=== PATIENT | male | born 1985 ===

== ENCOUNTER 2021-02-20 22:08 | Observation (INO) | payer OTHER ==
--- NOTE | 2021-02-20 22:18 | EDM.PDOC ---
ED HPI GENERAL MEDICAL PROBLEM - General Chief Complaint: Respiratory Problem Stated Complaint: DIFFICULTY BREATHING Time Seen by Provider: 02/20/21 22:16 Source of Information: Reports: Patient History Limitations: Reports: No Limitations - History of Present Illness INITIAL COMMENTS - FREE TEXT/NARRATIVE: Patient is a 35-year-old male who presents today for left-sided chest pain and shortness of breath. Patient was diagnosed with Covid a few days ago and had a cough which is getting better but tonight the left-sided chest pain came out of nowhere's been sharp in nature. Also she has history of PEs and takes Xarelto but not been taking it because has been coughing so much and sleeping a lot due to the Covid. He states the pain does not radiate not made better or worse with anything he has not tried any medicine for the pain at home other than the shortness of breath and cough he has no associated symptoms of nausea vomiting fever chills chest pain Pain Score (Numeric/FACES): 10 - Related Data Allergies Allergy/AdvReac Type Severity Reaction Status Date / Time No Known Allergies Allergy Verified 02/20/21 22:15 Home Meds: Home Meds Rivaroxaban [Xarelto] 20 mg PO DAILY 02/20/21 [History] Past Medical History HEENT History: Reports: None Cardiovascular History: Reports: Blood Clots/VTE/DVT Other Cardiovascular History: lung blood clot Respiratory History: Reports: None Gastrointestinal History: Reports: None Genitourinary History: Reports: None Musculoskeletal History: Reports: Back Pain, Chronic Neurological History: Reports: None Psychiatric History: Reports: None Endocrine/Metabolic History: Reports: None Hematologic History: Reports: None Immunologic History: Reports: None Oncologic (Cancer) History: Reports: None Dermatologic History: Reports: None - Past Surgical History Head Surgeries/Procedures: Reports: None HEENT Surgical History: Reports: None Cardiovascular Surgical History: Reports: None Respiratory Surgical History: Reports: None GI Surgical History: Reports: Appendectomy Other GI Surgeries/Procedures: part of intestine removed from appendicitis Male Surgical History: Reports: None Endocrine Surgical History: Reports: None Neurological Surgical History: Reports: None Musculoskeletal Surgical History: Reports: None Oncologic Surgical History: Reports: None ED ROS GENERAL - Review of Systems Review Of Systems: See Below Constitutional: Reports: No Symptoms HEENT: Reports: No Symptoms Respiratory: Reports: No Symptoms Cardiovascular: Reports: Chest Pain Endocrine: Reports: No Symptoms GI/Abdominal: Reports: No Symptoms : Reports: No Symptoms Musculoskeletal: Reports: No Symptoms Skin: Reports: No Symptoms Neurological: Reports: No Symptoms Psychiatric: Reports: No Symptoms Hematologic/Lymphatic: Reports: No Symptoms Immunologic: Reports: No Symptoms ED EXAM, GENERAL - Physical Exam Exam: See Below Exam Limited By: No Limitations General Appearance: Alert, WD/WN, No Apparent Distress Eye Exam: Bilateral Eye: EOMI, PERRL Respiratory/Chest: No Respiratory Distress, Lungs Clear, Normal Breath Sounds Cardiovascular: Normal Peripheral Pulses, Regular Rate, Rhythm GI/Abdominal: Normal Bowel Sounds, Soft, Non-Tender Extremities: Normal Inspection, Normal Range of Motion Neurological: Alert, Oriented #1 Interpretation EKG Date: 02/20/21 Time: 22:17 Rhythm: Other (sinus tach) Rate (Beats/Min): 122 ST-T: Normal Course - Vital Signs Last Recorded V/S: Last Vital Signs Temp 96.7 F L 02/20/21 22:16 Pulse 109 H 02/21/21 00:45 Resp 22 H 02/20/21 22:44 BP 145/72 H 02/21/21 00:45 Pulse Ox 94 L 02/21/21 00:45 - Orders/Labs/Meds Orders: Active Orders 24 hr Category Date Time Status Patient Status [ADT] Routine ADT 02/21/21 00:53 Ordered EKG Documentation Completion [RC] STAT Care 02/20/21 22:15 Active PTT,PARTIAL THROMBOPLSTIN TIME [COAG] Q6 Lab 02/21/21 00:45 Ordered PTT,PARTIAL THROMBOPLSTIN TIME [COAG] Q6 Lab 02/21/21 06:45 Ordered PTT,PARTIAL THROMBOPLSTIN TIME [COAG] Q6 Lab 02/21/21 12:45 Ordered PTT,PARTIAL THROMBOPLSTIN TIME [COAG] Q6 Lab 02/21/21 18:45 Ordered PTT,PARTIAL THROMBOPLSTIN TIME [COAG] Q6 Lab 02/22/21 00:45 Ordered PTT,PARTIAL THROMBOPLSTIN TIME [COAG] Q6 Lab 02/22/21 06:45 Ordered PTT,PARTIAL THROMBOPLSTIN TIME [COAG] Q6 Lab 02/22/21 12:45 Ordered PTT,PARTIAL THROMBOPLSTIN TIME [COAG] Stat Lab 02/21/21 00:43 Ordered Heparin Sodium/0.45% NaCl [Heparin 25,000 Units in 1/2 Med 02/21/21 00:45 Active NS 500 ML] 500 ml IV TITRATE Sodium Chloride 0.9% [Normal Saline] 1,000 ml Med 02/21/21 01:00 Active IV ASDIRECTED Medication Orders Heparin Sodium/Sodium Chloride (Heparin 25,000 Units In 1/2 Ns 500 Ml) 500 mls @ 45.722 mls/hr IV TITRATE LUCRECIA; Protocol Sodium Chloride (Normal Saline) 1,000 mls @ 150 mls/hr IV ASDIRECTED LUCRECIA Labs: Laboratory Tests 02/20/21 02/20/21 02/20/21 Range/Units 22:15 22:15 22:15 WBC 14.47 H (4.0-11.0) K/uL RBC 5.34 (4.50-5.90) M/uL Hgb 17.7 H (13.0-17.0) g/dL Hct 49.8 (38.0-50.0) % MCV 93.3 (80.0-98.0) fL MCH 33.1 H (27.0-32.0) pg MCHC 35.5 (31.0-37.0) g/dL RDW Std Deviation 44.5 (28.0-62.0) fl RDW Coeff of Phong 13 (11.0-15.0) % Plt Count 332 (150-400) K/uL MPV 9.90 (7.40-12.00) fL Neut % (Auto) 67.3 (48.0-80.0) % Lymph % (Auto) 19.8 (16.0-40.0) % Coos % (Auto) 9.4 (0.0-15.0) % Eos % (Auto) 2.9 (0.0-7.0) % Baso % (Auto) 0.6 (0.0-1.5) % Neut # (Auto) 9.7 H (1.4-5.7) K/uL Lymph # (Auto) 2.9 H (0.6-2.4) K/uL Coos # (Auto) 1.4 H (0.0-0.8) K/uL Eos # (Auto) 0.4 (0.0-0.7) K/uL Baso # (Auto) 0.1 (0.0-0.1) K/uL Nucleated RBC % 0.0 /100WBC Nucleated RBCs # 0 K/uL INR 1.06 APTT 24.1 (18.6-31.3) SEC D-Dimer, Quantitative 0.79 H (0.0-0.50) mg/L FEU Sodium 138 (136-148) mmol/L Potassium 3.9 (3.5-5.1) mmol/L Chloride 99 (98-107) mmol/L Carbon Dioxide 26.7 (21.0-32.0) mmol/L BUN 10 (7.0-18.0) mg/dL Creatinine 1.0 (0.8-1.3) mg/dL Est Cr Clr Drug Dosing 122.16 mL/min Estimated GFR (MDRD) > 60.0 ml/min Glucose 95 (74-106) mg/dL Calcium 8.9 (8.5-10.1) mg/dL Magnesium 2.3 (1.8-2.4) mg/dL Total Bilirubin 0.5 (0.2-1.0) mg/dL AST 44 H (15-37) IU/L ALT 111 H (14-63) IU/L Alkaline Phosphatase 76 (46-116) U/L Creatine Kinase 103 (26-308) U/L Troponin I < 0.050 (0.000-0.056) ng/mL Total Protein 8.3 H (6.4-8.2) g/dL Albumin 4.1 (3.4-5.0) g/dL Globulin 4.2 H (2.6-4.0) g/dL Albumin/Globulin Ratio 1.0 (0.9-1.6) Lipase 159 (73-393) U/L Meds: Medications Generic Name Dose Route Start Last Admin Trade Name Freq PRN Reason Stop Dose Admin Heparin Sodium/Sodium Chloride 500 mls @ 45.722 mls/hr 02/21/21 00:45 Heparin 25,000 Units In 1/2 Ns 500 Ml IV TITRATE LUCRECIA Protocol 18 UNITS/KG/HR Sodium Chloride 1,000 mls @ 150 mls/hr 02/21/21 01:00 Normal Saline IV ASDIRECTED LUCRECIA Discontinued Medications Generic Name Dose Route Start Last Admin Trade Name Divina PRN Reason Stop Dose Admin Heparin Sodium (Porcine) 5,000 units 02/21/21 00:42 Heparin Sodium 5,000 Units/Ml Vial IVPUSH 02/21/21 00:43 .BOLUS ONE Sodium Chloride 1,000 mls @ 1,000 mls/hr 02/20/21 22:22 02/20/21 22:55 Normal Saline IV 02/20/21 23:21 1,000 mls/hr .Bolus ONE Administration Iopamidol 100 ml 02/20/21 23:42 02/20/21 23:53 Iopamidol 755 Mg/Ml 500 Ml Multipack Bottle IVPUSH 02/20/21 23:43 100 ml ONETIME STA Administration Ketorolac Tromethamine 30 mg 02/20/21 23:14 02/20/21 23:25 Ketorolac 30 Mg/Ml Sdv IVPUSH 02/20/21 23:15 30 mg ONETIME ONE Administration - Re-Assessments/Exams Free Text/Narrative Re-Assessment/Exam: 02/21/21 00:53 She has subsegmental PE with possible right heart strain. The report also mentions some peripheral possible infiltrate groundglass opacities or infarct is likely infiltrates due to patient recent Covid. Patient will be admitted here and started on heparin. Departure - Departure Time of Disposition: 00:54 Disposition: Refer to Observation Condition: Good Clinical Impression: Pulmonary embolism - Discharge Information *PRESCRIPTION DRUG MONITORING PROGRAM REVIEWED*: Not Applicable *COPY OF PRESCRIPTION DRUG MONITORING REPORT IN PATIENT LUPE: Not Applicable Referrals: PCP,None [Primary Care Provider] - Forms: ED Department Discharge Critical Care Note - Critical Care Note Total Time (mins): 45 Comments: Critical Care Procedure Note Authorized and Performed by: Dr. Ervin Total critical care time: Approximately Due to a high probability of clinically significant, life threatening deterioration, the patient required my highest level of preparedness to interv vineet emergently and I personally spent this critical care time directly and personally managing the patient. This critical care time included obtaining a history; examining the patient; pulse oximetry; ordering and review of studies; arranging urgent treatment with development of a management plan; evaluation of patient's response to treatment; frequent reassessment; and, discussions with other providers. This critical care time was performed to assess and manage the high probability of imminent, life-threatening deterioration that could result in multi-organ failure. It was exclusive of separately billable procedures and treating other patients and teaching time. Sepsis Event Note (ED) - Focused Exam Vital Signs: Vital Signs Temp Pulse Resp BP Pulse Ox 02/21/21 00:45 109 H 145/72 H 94 L 02/21/21 00:14 105 H 138/75 93 L 02/20/21 23:14 105 H 126/75 94 L 02/20/21 22:44 107 H 22 H 122/75 95 02/20/21 22:30 123 H 24 H 96 02/20/21 22:16 96.7 F L 133 H 30 H 112/81 96 - My Orders Last 24 Hours: My Active Orders 02/20/21 22:15 EKG Documentation Completion [RC] STAT 02/21/21 00:43 PTT,PARTIAL THROMBOPLSTIN TIME [COAG] Stat 02/21/21 00:45 PTT,PARTIAL THROMBOPLSTIN TIME [COAG] Q6H Heparin Sodium/0.45% NaCl [Heparin 25,000 Units in 1/2 NS 500 ML] 500 ml IV TITRATE 02/21/21 00:53 Patient Status [ADT] Routine 02/21/21 01:00 Sodium Chloride 0.9% [Normal Saline] 1,000 ml IV ASDIRECTED 02/21/21 06:45 PTT,PARTIAL THROMBOPLSTIN TIME [COAG] Q6H 02/21/21 12:45 PTT,PARTIAL THROMBOPLSTIN TIME [COAG] Q6H 02/21/21 18:45 PTT,PARTIAL THROMBOPLSTIN TIME [COAG] Q6H 02/22/21 00:45 PTT,PARTIAL THROMBOPLSTIN TIME [COAG] Q6H 02/22/21 06:45 PTT,PARTIAL THROMBOPLSTIN TIME [COAG] Q6H 02/22/21 12:45 PTT,PARTIAL THROMBOPLSTIN TIME [COAG] Q6H - Assessment/Plan Last 24 Hours: My Active Orders 02/20/21 22:15 EKG Documentation Completion [RC] STAT 02/21/21 00:43 PTT,PARTIAL THROMBOPLSTIN TIME [COAG] Stat 02/21/21 00:45 PTT,PARTIAL THROMBOPLSTIN TIME [COAG] Q6H Heparin Sodium/0.45% NaCl [Heparin 25,000 Units in 1/2 NS 500 ML] 500 ml IV TITRATE 02/21/21 00:53 Patient Status [ADT] Routine 02/21/21 01:00 Sodium Chloride 0.9% [Normal Saline] 1,000 ml IV ASDIRECTED 02/21/21 06:45 PTT,PARTIAL THROMBOPLSTIN TIME [COAG] Q6H 02/21/21 12:45 PTT,PARTIAL THROMBOPLSTIN TIME [COAG] Q6H 02/21/21 18:45 PTT,PARTIAL THROMBOPLSTIN TIME [COAG] Q6H 02/22/21 00:45 PTT,PARTIAL THROMBOPLSTIN TIME [COAG] Q6H 02/22/21 06:45 PTT,PARTIAL THROMBOPLSTIN TIME [COAG] Q6H 02/22/21 12:45 PTT,PARTIAL THROMBOPLSTIN TIME [COAG] Q6H Plan: Patient is a 35-year-old male who presents today for left-sided chest pain shortness of breath. Patient is Covid positive. Will obtain x-ray and CT PE has patient had taken Xarelto EKG and reassess.
[2021-02-20] MEDS ORDERED: Sodium Chloride 0.9% 1,000 ML IV ONE (22:22)
--- NOTE | 2021-02-20 22:46 | CR ---
For Patients: As a result of the Century Cures Act, medical imaging exams and procedure reports are released immediately into your electronic medical record. You may view this report before your referring provider. If you have questions, please contact your health care provider. INDICATION: Left sided chest pain with recent COVID-19 diagnosis TECHNIQUE: Chest radiograph 1 view COMPARISON: None FINDINGS: Moderate degradation of image quality noted due to body habitus. Mediastinum: The mediastinum is normal in appearance. The heart silhouette is normal in size and morphology. Lung: There is minimal left basilar atelectasis with small lung volumes. No sign of pleural effusion seen. No pneumothorax is identified. Bone and Soft tissue: Unremarkable for age. IMPRESSION: 1. There is minimal left basilar atelectasis with small lung volumes. Dictated by: Rex Armstrong MD @ 02/20/2021 22:45:02 (Electronically Signed)
[2021-02-20 22:57] LABS: BLOOD UREA NITROGEN,BUN 10 mg/dL (7.0-18.0); CARBON DIOXIDE,CO2 26.7 mmol/L (21.0-32.0); CHLORIDE,CL 99 mmol/L (98-107); GLUCOSE RANDOM 95 mg/dL (74-106); LIPASE 159 U/L (73-393); POTASSIUM,K 3.9 mmol/L (3.5-5.1); SODIUM,NA 138 mmol/L (136-148)
[2021-02-20] MEDS ORDERED: Ketorolac 30 MG/ML SDV IVPUSH ONE (23:14)
[2021-02-20] MEDS ORDERED: Iopamidol 755 MG/ML 500 ML Multipack Bottle IVPUSH STA (23:42)
--- NOTE | 2021-02-21 00:37 | CT ---
INDICATION: Chest pain. Elevated D-dimer. COVID-19 TECHNIQUE: CT chest pulmonary PE protocol acquired with IV contrast. 100 mL of Isovue 370 administered. COMPARISON: None FINDINGS: Cardiovascular structures: Heterogeneous opacification and mild respiratory motion limits evaluation of some segmental and subsegmental pulmonary arteries. Filling defects in left lower lobe segmental and subsegmental pulmonary arteries consistent with pulmonary emboli. Ill-defined foci of luminal hypodensity in some left upper lobe segmental branches could be related to artifact, although additional pulmonary emboli are not excluded. Normal cardiac size. Borderline RV/LV ratio. Borderline dilatation of the aortic root measuring 4 cm. Mediastinum and caroline: No abnormally enlarged lymph nodes. Lungs: Left basilar subsegmental atelectasis. Patchy ground-glass opacities in the posterior and posterolateral left lung base which could represent infectious infiltrates or evolving pulmonary infarcts. Pleura and pericardium: A small left pleural effusion. Chest wall and axilla: No mass or adenopathy. Upper abdomen: Hepatic steatosis. Splenomegaly measuring 15.9 cm. Bones: No significant findings. IMPRESSION: Segmental and subsegmental left lower lobe pulmonary emboli. Borderline RV/LV ratio could represent mild RV strain. Patchy peripheral left lower lobe ground-glass opacities could represent infectious infiltrates or evolving pulmonary infarcts. A small left pleural effusion. Hepatic steatosis. Splenomegaly. The pertinent findings were discussed with Dr. Ervin, by phone, on 02/21/2021 at 12:30 a.m. Please note that all CT scans at this facility use dose modulation, iterative reconstruction, and/or weight-based dosing when appropriate to reduce radiation dose to as low as reasonably achievable. Dictated by Casey Centeno MD @ 02/21/2021 12:35:[address] Casey Centeno @ Feb 21 2021 12:35AM
[2021-02-21] MEDS ORDERED: Heparin Sodium 5,000 Units/ML Vial IVPUSH ONE ×4 (00:42→19:28)
[2021-02-21] MEDS ORDERED: Sodium Chloride 0.9% 1,000 ML IV SCH (01:00)
[2021-02-21] MEDS: Heparin Sodium/0.45% NaCl 500 ML IV SCH ×2 (01:13→15:51)
[2021-02-21] MEDS ORDERED: Ondansetron 4 MG/2 ML SDV IVPUSH PRN (03:05)
[2021-02-21] MEDS: Lactated Ringers 1,000 ML IV SCH ×3 (03:24→21:05)
[2021-02-21 08:03] LABS: BLOOD UREA NITROGEN,BUN 11 mg/dL (7.0-18.0); CARBON DIOXIDE,CO2 25.9 mmol/L (21.0-32.0); CHLORIDE,CL 105 mmol/L (98-107); GLUCOSE RANDOM 103 mg/dL (74-106); POTASSIUM,K 3.8 mmol/L (3.5-5.1); SODIUM,NA 140 mmol/L (136-148)
--- NOTE | 2021-02-21 09:10 | PCM.HP.2 ---
H&P History of Present Illness - General Date of Service: 02/21/21 Admit Problem/Dx: Admission Diagnosis/Problem Admission Diagnosis/Problem Pulmonary embolism - History of Present Illness Initial Comments - Free Text/Narative: Patient is a 35-year-old male with past medical history of PEs currently on anticoagulation, patient was recently diagnosed with Covid and has been having cough and weakness because of Covid. Patient states he was feeling better up until yesterday when he started having sharp chest pains on the left side which came out of nowhere. Patient has not been taking his oral anticoagulation for last few days due to constant cough and him being sleepy most of the day due to Covid. Patient denies any presyncope, syncope, palpitations, abdominal pain, nausea, vomiting, fever, chills, neurological deficits, urinary/frequency urinary urgency, diarrhea, constipation. In the ER CT of the chest was done which did show segmental and subsegmental PEs with a possible mild right heart strain, the report also mentioned some peripheral possible infiltrate groundglass opacities or developing pulmonary infarct, troponin was negative. EKG showed sinus tachycardia with heart of 122, no evidence of right heart strain on EKG. Patient was not hypoxic and was saturating 96% on room air. Pulmonology at [facility] was consulted, patient did not meet any criteria for invasive procedure such as thrombectomy, was recommended to restart patient's anticoagulation's. Given patient's possible right heart strain and his continued pain, as well as his Covid positive status, patient was considered hig h risk for discharge, patient was admitted to the hospital for observation and started on heparin drip. Left Thoracic Pain Score (Numeric/FACES): 7 chest pain Pain Score (Numeric/FACES): 10 Right Leg Pain Score (Numeric/FACES): 6 - Related Data Allergies/Adverse Reactions: Allergies Allergy/AdvReac Type Severity Reaction Status Date / Time No Known Allergies Allergy Verified 02/21/21 02:44 Home Medications: Home Meds Rivaroxaban [Xarelto] 20 mg PO DAILY 02/20/21 [History] Past Medical History HEENT History: Reports: None Cardiovascular History: Reports: Blood Clots/VTE/DVT Other Cardiovascular History: lung blood clot Respiratory History: Reports: None Gastrointestinal History: Reports: None Genitourinary History: Reports: None Musculoskeletal History: Reports: Back Pain, Chronic Neurological History: Reports: None Psychiatric History: Reports: None Endocrine/Metabolic History: Reports: None Hematologic History: Reports: None Immunologic History: Reports: None Oncologic (Cancer) History: Reports: None Dermatologic History: Reports: None - Infectious Disease History Infectious Disease History: Reports: Chicken Pox, Novel Coronavirus - Past Surgical History Head Surgeries/Procedures: Reports: None HEENT Surgical History: Reports: None Cardiovascular Surgical History: Reports: None Respiratory Surgical History: Reports: None GI Surgical History: Reports: Appendectomy Other GI Surgeries/Procedures: part of intestine removed from appendicitis Male Surgical History: Reports: None Endocrine Surgical History: Reports: None Neurological Surgical History: Reports: None Musculoskeletal Surgical History: Reports: None Oncologic Surgical History: Reports: None Social & Family History - Tobacco Use Tobacco Use Status *Q: Current Every Day Tobacco User Years of Tobacco use: 14 Packs/Tins Daily: 1 Used Tobacco, but Quit: No - Caffeine Use Caffeine Use: Reports: Coffee, Energy Drinks, Soda - Recreational Drug Use Recreational Drug Use: No H&P Review of Systems - Review of Systems: Review Of Systems: See Below General: Denies: Fever, Chills, Malaise Pulmonary: Reports: Shortness of Breath, Pleuritic Chest Pain, Cough. Denies: Wheezing Cardiovascular: Reports: Chest Pain, Dyspnea on Exertion. Denies: Palpitations, Orthopnea, PND, Edema, Lightheadedness, Syncope Gastrointestinal: Denies: Abdominal Pain, Anorexia, Black Stool Genitourinary: Denies: Dysuria, Frequency, Burning Musculoskeletal: Denies: Neck Pain, Shoulder Pain, Arm Pain Skin: Denies: Cyanosis, Jaundice, Mottled Psychiatric: Denies: Confusion, Depression, Mood Lability Neurological: Denies: Confusion, Dizziness, Headache Exam - Exam Exam: See Below - Vital Signs Vital Signs: Last Vital Signs Temp 36.6 C 02/21/21 08:08 Pulse 79 02/21/21 08:08 Resp 16 02/21/21 08:08 BP 133/81 02/21/21 08:08 Pulse Ox 97 02/21/21 08:08 Weight: 129.047 kg - Exam Quality Assessment: Supplemental Oxygen (For comfort patient was not hypoxic) General: Alert, Oriented Neck: Supple Lungs: Clear to Auscultation Cardiovascular: Regular Rate, Regular Rhythm, Normal S1, Normal S2 GI/Abdominal Exam: Normal Bowel Sounds, Soft, Non-Tender - Patient Data Lab Results Last 24 hrs: Laboratory Results - last 24 hr 02/20/21 02/20/21 02/20/21 Range/Units 22:15 22:15 22:15 WBC 14.47 H (4.0-11.0) K/uL RBC 5.34 (4.50-5.90) M/uL Hgb 17.7 H (13.0-17.0) g/dL Hct 49.8 (38.0-50.0) % MCV 93.3 (80.0-98.0) fL MCH 33.1 H (27.0-32.0) pg MCHC 35.5 (31.0-37.0) g/dL RDW Std Deviation 44.5 (28.0-62.0) fl RDW Coeff of Phong 13 (11.0-15.0) % Plt Count 332 (150-400) K/uL MPV 9.90 (7.40-12.00) fL Neut % (Auto) 67.3 (48.0-80.0) % Lymph % (Auto) 19.8 (16.0-40.0) % King % (Auto) 9.4 (0.0-15.0) % Eos % (Auto) 2.9 (0.0-7.0) % Baso % (Auto) 0.6 (0.0-1.5) % Neut # (Auto) 9.7 H (1.4-5.7) K/uL Lymph # (Auto) 2.9 H (0.6-2.4) K/uL King # (Auto) 1.4 H (0.0-0.8) K/uL Eos # (Auto) 0.4 (0.0-0.7) K/uL Baso # (Auto) 0.1 (0.0-0.1) K/uL Nucleated RBC % 0.0 /100WBC Nucleated RBCs # 0 K/uL INR 1.06 APTT 24.1 (18.6-31.3) SEC D-Dimer, Quantitative 0.79 H (0.0-0.50) mg/L FEU Sodium 138 (136-148) mmol/L Potassium 3.9 (3.5-5.1) mmol/L Chloride 99 (98-107) mmol/L Carbon Dioxide 26.7 (21.0-32.0) mmol/L BUN 10 (7.0-18.0) mg/dL Creatinine 1.0 (0.8-1.3) mg/dL Est Cr Clr Drug Dosing 122.16 mL/min Estimated GFR (MDRD) > 60.0 ml/min Glucose 95 (74-106) mg/dL Calcium 8.9 (8.5-10.1) mg/dL Phosphorus (2.6-4.7) mg/dL Magnesium 2.3 (1.8-2.4) mg/dL Total Bilirubin 0.5 (0.2-1.0) mg/dL AST 44 H (15-37) IU/L ALT 111 H (14-63) IU/L Alkaline Phosphatase 76 (46-116) U/L Creatine Kinase 103 (26-308) U/L Troponin I < 0.050 (0.000-0.056) ng/mL Total Protein 8.3 H (6.4-8.2) g/dL Albumin 4.1 (3.4-5.0) g/dL Globulin 4.2 H (2.6-4.0) g/dL Albumin/Globulin Ratio 1.0 (0.9-1.6) Lipase 159 (73-393) U/L 02/21/21 02/21/21 02/21/21 Range/Units 07:02 07:02 07:02 WBC 10.48 (4.0-11.0) K/uL RBC 4.63 (4.50-5.90) M/uL Hgb 15.0 (13.0-17.0) g/dL Hct 43.6 (38.0-50.0) % MCV 94.2 (80.0-98.0) fL MCH 32.4 H (27.0-32.0) pg MCHC 34.4 (31.0-37.0) g/dL RDW Std Deviation 45.1 (28.0-62.0) fl RDW Coeff of Phong 13 (11.0-15.0) % Plt Count 215 (150-400) K/uL MPV 9.50 (7.40-12.00) fL Neut % (Auto) 59.4 (48.0-80.0) % Lymph % (Auto) 25.9 (16.0-40.0) % King % (Auto) 10.6 (0.0-15.0) % Eos % (Auto) 3.7 (0.0-7.0) % Baso % (Auto) 0.4 (0.0-1.5) % Neut # (Auto) 6.2 H (1.4-5.7) K/uL Lymph # (Auto) 2.7 H (0.6-2.4) K/uL King # (Auto) 1.1 H (0.0-0.8) K/uL Eos # (Auto) 0.4 (0.0-0.7) K/uL Baso # (Auto) 0.0 (0.0-0.1) K/uL Nucleated RBC % 0.0 /100WBC Nucleated RBCs # 0 K/uL INR APTT 29.2 (18.6-31.3) SEC D-Dimer, Quantitative (0.0-0.50) mg/L FEU Sodium 140 (136-148) mmol/L Potassium 3.8 (3.5-5.1) mmol/L Chloride 105 (98-107) mmol/L Carbon Dioxide 25.9 (21.0-32.0) mmol/L BUN 11 (7.0-18.0) mg/dL Creatinine 1.0 (0.8-1.3) mg/dL Est Cr Clr Drug Dosing 122.16 mL/min Estimated GFR (MDRD) > 60.0 ml/min Glucose 103 (74-106) mg/dL Calcium 8.2 L (8.5-10.1) mg/dL Phosphorus 4.0 (2.6-4.7) mg/dL Magnesium 2.1 (1.8-2.4) mg/dL Total Bilirubin (0.2-1.0) mg/dL AST (15-37) IU/L ALT (14-63) IU/L Alkaline Phosphatase (46-116) U/L Creatine Kinase (26-308) U/L Troponin I (0.000-0.056) ng/mL Total Protein (6.4-8.2) g/dL Albumin (3.4-5.0) g/dL Globulin (2.6-4.0) g/dL Albumin/Globulin Ratio (0.9-1.6) Lipase (73-393) U/L Result Diagrams: 02/21/21 07:02 02/21/21 07:02 Sepsis Event Note - Evaluation Sepsis Screening Result: No Definite Risk - Focused Exam Vital Signs: Vital Signs Temp Pulse Resp BP Pulse Ox 02/21/21 08:08 36.6 C 79 16 133/81 97 02/21/21 03:00 82 18 96 02/21/21 02:00 36.6 C 102 H 18 145/83 H 96 02/21/21 01:36 95 126/79 95 02/21/21 00:45 109 H 145/72 H 94 L 02/21/21 00:14 105 H 138/75 93 L 02/20/21 23:14 105 H 126/75 94 L 02/20/21 22:44 107 H 22 H 122/75 95 02/20/21 22:30 123 H 24 H 96 02/20/21 22:16 35.9 C L 133 H 30 H 112/81 96 - Problem List (1) COVID-19 SNOMED Code(s): 196189714 ICD Code: U07.1 - COVID-19 Status: Acute Current Visit: Yes (2) Pulmonary embolism SNOMED Code(s): 07904234 ICD Code: I26.99 - OTHER PULMONARY EMBOLISM WITHOUT ACUTE COR PULMONALE Status: Acute Current Visit: Yes (3) Chest pain SNOMED Code(s): 32556317 ICD Code: R07.9 - CHEST PAIN, UNSPECIFIED Status: Acute Current Visit: Yes Problem List Initiated/Reviewed/Updated: Yes Orders Last 24hrs: Active Orders 24 hr Category Date Time Status Patient Status [ADT] Routine ADT 02/21/21 00:53 Active EKG Documentation Completion [RC] STAT Care 02/20/21 22:15 Active Oxygen Therapy [RC] ASDIRECTED Care 02/21/21 03:02 Active RT Incentive Spirometry [RC] ASDIRECTED Care 02/21/21 03:10 Active Telemetry Monitoring [Cardiac Monitoring] [RC] Q8H Care 02/21/21 01:24 Active Vital Signs [RC] Q4H Care 02/21/21 07:00 Active Heart Healthy Diet [DIET] Diet 02/21/21 Breakfast Active PTT,PARTIAL THROMBOPLSTIN TIME [COAG] Q6H Lab 02/21/21 12:45 Ordered PTT,PARTIAL THROMBOPLSTIN TIME [COAG] Q6 Lab 02/21/21 18:45 Ordered PTT,PARTIAL THROMBOPLSTIN TIME [COAG] Q6 Lab 02/22/21 00:45 Ordered PTT,PARTIAL THROMBOPLSTIN TIME [COAG] Q6 Lab 02/22/21 02:15 Ordered PTT,PARTIAL THROMBOPLSTIN TIME [COAG] Q6 Lab 02/22/21 06:45 Ordered PTT,PARTIAL THROMBOPLSTIN TIME [COAG] Q6 Lab 02/22/21 08:15 Ordered PTT,PARTIAL THROMBOPLSTIN TIME [COAG] Q6 Lab 02/22/21 12:45 Ordered PTT,PARTIAL THROMBOPLSTIN TIME [COAG] Q6 Lab 02/22/21 14:15 Ordered PTT,PARTIAL THROMBOPLSTIN TIME [COAG] Q6 Lab 02/22/21 20:15 Ordered Acetaminophen [TylenoL] Med 02/21/21 03:04 Active 650 mg PO Q4H PRN Heparin Sodium/0.45% NaCl [Heparin 25,000 Units in 1/2 Med 02/21/21 00:45 Active NS 500 ML] 500 ml IV TITRATE Lactated Ringers [Ringers, Lactated] 1,000 ml Med 02/21/21 03:15 Active IV ASDIRECTED Ondansetron [Zofran] Med 02/21/21 03:05 Active 4 mg IVPUSH Q4H PRN Sodium Chloride 0.9% [Normal Saline] 1,000 ml Med 02/21/21 01:00 Active IV ASDIRECTED Pulse Oximetry Continuous Monitoring [OM.PC] Routine Oth 02/21/21 03:03 Or dered Medication Orders Acetaminophen (Acetaminophen 325 Mg Tab) 650 mg PO Q4H PRN PRN Reason: Pain/Fever Heparin Sodium/Sodium Chloride (Heparin 25,000 Units In 1/2 Ns 500 Ml) 500 mls @ 45.722 mls/hr IV TITRATE LUCRECIA; Protocol Last Titration: 02/21/21 08:50 Dose: 15 units/kg/hr, 38.102 mls/hr Documented by: ILANA Cosigned by: BRIA Admin: 02/21/21 01:13 Dose: 11 units/kg/hr, 27.941 mls/hr Documented by: DANIELE Cosigned by: ROCK Sodium Chloride (Normal Saline) 1,000 mls @ 150 mls/hr IV ASDIRECTED [facility] Last Infusion: 02/21/21 03:20 Dose: 0 mls/hr Documented by: Admin: 02/21/21 01:19 Dose: 150 mls/hr Documented by: DANIELE Lactated Ringer's (Ringers, Lactated) 1,000 mls @ 125 mls/hr IV ASDIRECTED [facility] Last Admin: 02/21/21 03:24 Dose: 125 mls/hr Documented by: CASA Ondansetron HCl (Ondansetron 4 Mg/2 Ml Sdv) 4 mg IVPUSH Q4H PRN PRN Reason: Nausea/Vomiting Assessment/Plan Comment:: 35-year-old male with history of PEs admitted for pulmonary embolism due to noncompliance with his oral anticoagulants Continue heparin GTT Continuous pulse ox Patient had an episode of chest pain this morning, troponin was checked which was negative there were no concerning changes on telemetry, patient was likely having episode of increased anxiety, received IV morphine which helped with the pain Patient was complaining of right lower leg pain, ultrasound of the leg was obtained which was negative for DVT We will transition to oral anticoagulant after 24-hour observation, Patient currently not hypoxic, does not meet criteria for IV remdesivir or dexamethasone DuoNebs as needed for shortness of breath IV morphine for pleuritic chest pain Regular diet as tolerated Anticipate discharge in a.m.
[2021-02-21] MEDS: Acetaminophen 325 MG Tab PO PRN (09:41)
[2021-02-21] MEDS ORDERED: Morphine 2 MG/ML SYRINGE IVPUSH ONE (09:45)
--- NOTE | 2021-02-21 12:53 | US ---
CLINICAL HISTORY: Right buttock pain TECHNIQUE: A compression venous ultrasound exam was performed of the right lower extremity using mancilla-scale imaging, color Doppler and spectral Doppler analysis. FINDINGS: Sonographic imaging of the right lower extremity demonstrates normal compressibility and color Doppler venous blood flow within the common femoral vein, deep femoral vein, and the proximal greater saphenous vein. Within the thigh, the femoral vein is patent and compressible. At a lower level, the popliteal and posterior tibial veins also show normal compressibility and color Doppler venous blood flow. Limited imaging of the contralateral groin demonstrates a normal spectral waveform and color Doppler venous blood flow within the left common femoral vein. IMPRESSION: Normal venous ultrasound exam. No evidence of deep vein thrombosis within the right lower extremity. Dictated by Lizette Combs MD @ 02/21/2021 12:51:[address] Lizette Combs @ Feb 21 2021 12:51PM
[2021-02-21] MEDS ORDERED: Albuterol/Ipratropium 3.0-0.5 MG/3 ML Neb Soln NEB PRN (13:34)
[2021-02-21] MEDS: Morphine 2 MG/ML SYRINGE IVPUSH PRN ×2 (15:53→19:59)
[2021-02-21] MEDS ORDERED: Tranexamic Acid 1,000 MG in Sodium Chloride 0.9% 100 ML IV ONE (22:59)
[2021-02-22] MEDS: Morphine 2 MG/ML SYRINGE IVPUSH PRN (01:35)
[2021-02-22] MEDS ORDERED: Heparin Sodium 5,000 Units/ML Vial IVPUSH ONE (01:48)
[2021-02-22] MEDS: Heparin Sodium/0.45% NaCl 500 ML IV SCH (03:30)
[2021-02-22] MEDS: Lactated Ringers 1,000 ML IV SCH (05:13)
[2021-02-22] MEDS: Acetaminophen 325 MG Tab PO PRN (09:46)
[2021-02-22] MEDS ORDERED: Rivaroxaban 10 MG Tab PO ONE (10:15)
--- NOTE | 2021-02-22 12:08 | PCM.DCSUM1 ---
Discharge Summary - Hospital Course Free Text/Narrative:: Patient is a 35-year-old male with past medical history of PEs currently on anticoagulation, patient was recently diagnosed with Covid and has been having cough and weakness because of Covid. Patient states he was feeling better up until yesterday when he started having sharp chest pains on the left side which came out of nowhere. Patient has not been taking his oral anticoagulation for last few days due to constant cough and him being sleepy most of the day due to Covid. Patient denies any presyncope, syncope, palpitations, abdominal pain, nausea, vomiting, fever, chills, neurological deficits, urinary/frequency urinary urgency, diarrhea, constipation. In the ER CT of the chest was done which did show segmental and subsegmental PEs with a possible mild right heart strain, the report also mentioned some peripheral possible infiltrate groundgla ss opacities or developing pulmonary infarct, troponin was negative. EKG showed sinus tachycardia with heart of 122, no evidence of right heart strain on EKG. Patient was not hypoxic and was saturating 96% on room air. Pulmonology at [facility] was consulted, patient did not meet any criteria for invasive procedure such as thrombectomy, was recommended to restart patient's anticoagulation's. Given patient's possible right heart strain and his continued pain, as well as his Covid positive status, patient was considered high risk for discharge, patient was admitted to the hospital for observation and started on heparin drip. Patient has had PE in past, starting in 2016, he was briefly on Coumadin and taken off it. Later it happened again a year later, so he was started on Xarelto. States he missed atleast 4 to 5 doses intermittently last few days due to him feeling sick from covid, he also ran out of his pills. current PE is due to non compliance NOT DUE TO TREATMENT FAILURE. States he has been "worked up" in past but no proper diagnosis was given as a cause of his PE. Patient denies any office specialist. Patient was started on heparin drip and admitted to the MedSurg unit. 2D echo could not be obtained due to unavailability of echo in a facility over the weekend, patient was started on a continuous pulse ox monitor, patient was never hypoxic, was only intermittently put on oxygen 1 L for comfort for a short period of time and was eventually taken off, did complain of chest pain on deep inspiration which resolved with some IV morphine. That night patient had some blood-streaked sputum twice, the second sputum was minimally blood-streaked, heparin was held for an hour, patient received tranexamic acid, patient closely monitored for increased oxygen demand, worsening hemoptysis or worsening shortness of breath. Overnight patient had no more episodes of hemoptysis or any other kind of bleeding. Next day patient stated that his breathing feels much better and his pain on inspiration had almost resolved. Patient had a mild headache for which she received Tylenol. Hemoglobin was stable there was no concern of active bleeding. Patient continued to be on room air without requiring oxygen resting as well as upon ambulation. Patient was switched to home dose of Xarelto and heparin drip was stopped. Patient was counseled about importance of compliance to his blood thinner medication. Patient was recommended to have close follow-up with his primary care upon discharge. Patient was informed to come back to ER in case he was concern of worsening shortness of breath, bloody sputum, bloody vomiting. Patient is hemodynamically stable for discharge. Diagnosis: Stroke: No - Discharge Data Discharge Date: 02/22/21 Discharge Disposition: Home, Self-Care 01 Condition: Stable - Referral to Home Health Primary Care Physician: PCP None - Discharge Diagnosis/Problem(s) (1) COVID-19 SNOMED Code(s): 038943441 ICD Code: U07.1 - COVID-19 Status: Acute Current Visit: Yes (2) Pulmonary embolism SNOMED Code(s): 18330318 ICD Code: I26.99 - OTHER PULMONARY EMBOLISM WITHOUT ACUTE COR PULMONALE Status: Acute Current Visit: Yes (3) Chest pain SNOMED Code(s): 50111022 ICD Code: R07.9 - CHEST PAIN, UNSPECIFIED Status: Acute Current Visit: Yes - Patient Instructions Diet: Heart Healthy Diet Activity: As Tolerated Driving: May Drive Today Showering/Bathing: May Shower Notify Provider of: Fever, Increased Pain, Swelling and Redness, Drainage, Nausea and/or Vomiting Other/Special Instructions: Return to ER if concern of bloody sputum, bloody vomiting, worsening headaches or worsening chest pain or shortness of breath. - Discharge Plan *PRESCRIPTION DRUG MONITORING PROGRAM REVIEWED*: Not Applicable *COPY OF PRESCRIPTION DRUG MONITORING REPORT IN PATIENT LUPE: Not Applicable Prescriptions/Med Rec: Acetaminophen [Tylenol] 650 mg PO Q4H PRN #16 tablet PRN Reason: Pain/Fever Rivaroxaban [Xarelto] 20 mg PO DAILY 30 Days #30 tab Home Medications: Home Meds Acetaminophen [Tylenol] 650 mg PO Q4H PRN #16 tablet 02/22/21 [Rx] Rivaroxaban [Xarelto] 20 mg PO DAILY 30 Days #30 tab 02/22/21 [Rx] Patient Handouts: COVID-19 Frequently Asked Questions, COVID-19, Rivaroxaban oral tablets, COVID-19: How to Protect Yourself and Others - [facility], Acetaminophen tablets or caplets Referrals: PCP,None [Primary Care Provider] - - Discharge Summary/Plan Comment DC Time >30 min.: No - Patient Data Vitals - Most Recent: Last Vital Signs Temp 37.0 C 02/22/21 08:12 Pulse 89 02/22/21 08:12 Resp 20 02/22/21 08:12 BP 135/89 02/22/21 08:12 Pulse Ox 96 02/22/21 08:12 Weight - Most Recent: 129.047 kg I&O - Last 24 hours: Intake & Output 02/21/21 02/22/21 02/22/21 22:59 06:59 14:59 Intake Total 200 2590 Output Total 780 1100 Balance -580 1490 Lab Results - Last 24 hrs: Laboratory Results - last 24 hr 02/21/21 02/21/21 02/22/21 Range/Units 12:50 18:55 01:05 WBC (4.0-11.0) K/uL RBC (4.50-5.90) M/uL Hgb (13.0-17.0) g/dL Hct (38.0-50.0) % MCV (80.0-98.0) fL MCH (27.0-32.0) pg MCHC (31.0-37.0) g/dL RDW Std Deviation (28.0-62.0) fl RDW Coeff of Phong (11.0-15.0) % Plt Count (150-400) K/uL MPV (7.40-12.00) fL Neut % (Auto) (48.0-80.0) % Lymph % (Auto) (16.0-40.0) % [place] % (Auto) (0.0-15.0) % Eos % (Auto) (0.0-7.0) % Baso % (Auto) (0.0-1.5) % Neut # (Auto) (1.4-5.7) K/uL Lymph # (Auto) (0.6-2.4) K/uL [place] # (Auto) (0.0-0.8) K/uL Eos # (Auto) (0.0-0.7) K/uL Baso # (Auto) (0.0-0.1) K/uL Nucleated RBC % /100WBC Nucleated RBCs # K/uL APTT 38.9 H 38.1 H 30.2 (18.6-31.3) SEC 02/22/21 02/22/21 Range/Units 06:50 06:50 WBC 11.10 H (4.0-11.0) K/uL RBC 4.59 (4.50-5.90) M/uL Hgb 15.0 (13.0-17.0) g/dL Hct 42.9 (38.0-50.0) % MCV 93.5 (80.0-98.0) fL MCH 32.7 H (27.0-32.0) pg MCHC 35.0 (31.0-37.0) g/dL RDW Std Deviation 43.7 (28.0-62.0) fl RDW Coeff of Phong 13 (11.0-15.0) % Plt Count 226 (150-400) K/uL MPV 9.70 (7.40-12.00) fL Neut % (Auto) 68.4 (48.0-80.0) % Lymph % (Auto) 17.1 (16.0-40.0) % [place] % (Auto) 10.8 (0.0-15.0) % Eos % (Auto) 3.2 (0.0-7.0) % Baso % (Auto) 0.5 (0.0-1.5) % Neut # (Auto) 7.6 H (1.4-5.7) K/uL Lymph # (Auto) 1.9 (0.6-2.4) K/uL [place] # (Auto) 1.2 H (0.0-0.8) K/uL Eos # (Auto) 0.4 (0.0-0.7) K/uL Baso # (Auto) 0.1 (0.0-0.1) K/uL Nucleated RBC % 0.0 /100WBC Nucleated RBCs # 0 K/uL APTT 52.8 H (18.6-31.3) SEC Med Orders - Current: Current Medications Acetaminophen (Acetaminophen 325 Mg Tab) 650 mg PO Q4H PRN PRN Reason: Pain/Fever Last Admin: 02/22/21 09:46 Dose: 650 mg Documented by: Albuterol/Ipratropium (Albuterol/Ipratropium 3.0-0.5 Mg/3 Ml Neb Soln) 3 ml NEB Q4HRRT PRN PRN Reason: Shortness of Breath Sodium Chloride (Normal Saline) 1,000 mls @ 150 mls/hr IV ASDIRECTED [facility] Last Infusion: 02/21/21 03:20 Dose: 0 mls/hr Documented by: Lactated Ringer's (Ringers, Lactated) 1,000 mls @ 125 mls/hr IV ASDIRECTED [facility] Last Admin: 02/22/21 05:13 Dose: 125 mls/hr Documented by: Morphine Sulfate (Morphine 2 Mg/Ml Syringe) 1 mg IVPUSH Q4H PRN PRN Reason: Pain Last Admin: 02/22/21 01:35 Dose: 1 mg Documented by: Ondansetron HCl (Ondansetron 4 Mg/2 Ml Sdv) 4 mg IVPUSH Q4H PRN PRN Reason: Nausea/Vomiting Discontinued Medications Heparin Sodium (Porcine) (Heparin Sodium 5,000 Units/Ml Vial) 5,000 units IVPUSH .BOLUS ONE Stop: 02/21/21 00:43 Last Admin: 02/21/21 01:11 Dose: 5,000 units Documented by: Heparin Sodium (Porcine) (Heparin Sodium 5,000 Units/Ml Vial) 2,500 units IVPUSH .BOLUS ONE Stop: 02/21/21 08:06 Last Admin: 02/21/21 08:49 Dose: 2,500 units Documented by: Heparin Sodium (Porcine) (Heparin Sodium 5,000 Units/Ml Vial) 1,500 units IVPUSH .BOLUS ONE Stop: 02/21/21 15:41 Last Admin: 02/21/21 15:52 Dose: 1,500 units Documented by: Heparin Sodium (Porcine) (Heparin Sodium 5,000 Units/Ml Vial) 1,500 units IVPUSH .BOLUS ONE Stop: 02/21/21 19:29 Last Admin: 02/21/21 19:45 Dose: 1,500 units Documented by: Heparin Sodium (Porcine) (Heparin Sodium 5,000 Units/Ml Vial) 2,500 units IVPUSH .BOLUS ONE Stop: 02/22/21 01:49 Last Admin: 02/22/21 02:07 Dose: 2,500 units Documented by: Sodium Chloride (Normal Saline) 1,000 mls @ 1,000 mls/hr IV .Bolus ONE Stop: 02/20/21 23:21 Last Admin: 02/20/21 22:55 Dose: 1,000 mls/hr Documented by: Heparin Sodium/Sodium Chloride (Heparin 25,000 Units In 1/2 Ns 500 Ml) 500 mls @ 45.722 mls/hr IV TITRATE [facility]; Protocol Last Admin: 02/22/21 03:30 Dose: 23 units/kg/hr, 58.423 mls/hr Documented by: Tranexamic Acid 1,000 mg/ (Sodium Chloride) 110 mls @ 660 mls/hr IV ONETIME ONE Stop: 02/21/21 23:08 Last Admin: 02/21/21 23:27 Dose: 660 mls/hr Documented by: Iopamidol (Iopamidol 755 Mg/Ml 500 Ml Multipack Bottle) 100 ml IVPUSH ONETIME STA Stop: 02/20/21 23:43 Last Admin: 02/20/21 23:53 Dose: 100 ml Documented by: Ketorolac Tromethamine (Ketorolac 30 Mg/Ml Sdv) 30 mg IVPUSH ONETIME ONE Stop: 02/20/21 23:15 Last Admin: 02/20/21 23:25 Dose: 30 mg Documented by: Morphine Sulfate (Morphine 2 Mg/Ml Syringe) 2 mg IVPUSH ONETIME ONE Stop: 02/21/21 09:46 Last Admin: 02/21/21 10:39 Dose: 2 mg Documented by: Rivaroxaban (Rivaroxaban 10 Mg Tab) [facility] Rivaroxaban (Rivaroxaban 10 Mg Tab) 20 mg PO ONETIME ONE Stop: 02/22/21 10:16 Last Admin: 02/22/21 11:00 Dose: 20 mg Documented by:
[2021-02-22] MEDS ORDERED: Rivaroxaban 10 MG Tab PO SCH (17:30)
== END 2021-02-22 14:08 | disposition home or self-care (01) ==
LOC: MW.ED 22:08 → MW.MS 02-21 00:53 → UNDOADMOB 02-21 00:53 → MW.MS 02-21 01:47
PROVIDERS: ADMIT Student in an Organized Health Care Education/Training Program; ATTEND Student in an Organized Health Care Education/Training Program
DX: U07.1 COVID-19 (principal); I26.99 Other pulmonary embolism without acute cor pulmonale; F17.210 Nicotine dependence, cigarettes, uncomplicated
CPT/HCPCS: 36415; 71045; 71275; 80048; 80053; 82550; 83690; 83735; 84100; 84484; 85025; 85379; 85610; 85730; 93005; 93971; A9270; J1644; J1885; J2270; J7030; J7120; Q9967; 94640; 99217; 99218